=== PATIENT | male | born 1950 | race Caucasian/White ===

== ENCOUNTER 2022-01-24 10:59 | Emergency (ER) | payer MEDICARE, OTHER ==
[~2022-01-24 10:59] MED LIST: ZOFRAN4 MG PO
[2022-01-24 12:36] LABS: BASOPHIL 0.6 % (0-2); EOSINOPHIL 3.3 % (0-7); HCT 46.5 % (42.0-52.0); LYMPHOCYTE 16.2 % (15-48); MCH 32.9 pg (25.0-31.0); MCHC 34.4 g/dL (32.0-36.0); MCV 95.5 fL (78.0-100.0); MONOCYTE 8.6 % (0-12); MPV 9.5 fL (6.0-9.5); NEUTROPHIL 70.9 % (41-80); NRBC 0; PLT 233 K/uL (150-400); RBC 4.87 M/uL (4.70-6.00); RDW 13.7 % (11.5-14.0); WBC 8.1 K/uL (4.0-10.5)
[2022-01-24 12:52] LABS: INR 0.98 (0.9-1.2); PROTHROMBIN TIME 12.4 SECONDS (11.8-13.4)
[2022-01-24 12:54] LABS: D-DIMER 2.16 ug/mLFEU (0.00-0.41)
[2022-01-24 13:05] LABS: ALBUMIN 3.3 g/dL (3.4-5.0); BILIRUBIN - TOTAL 0.8 mg/dL (0.2-1.0); BUN/CREAT RATIO (CALC) 18.6 RATIO; CREATININE 0.86 mg/dL (0.67-1.17); GLOBULIN (CALCULATION) 4.6 g/dL; POTASSIUM 3.7 mmol/L (3.5-5.1); TOTAL PROTEIN 7.9 g/dL (6.4-8.2)
[2022-01-24 13:06] LABS: BILIRUBIN NEGATIVE (NEGATIVE); BLOOD NEGATIVE Ery/uL (NEGATIVE); CLARITY CLEAR (CLEAR); COLOR YELLOW (YELLOW); GLUCOSE (U) NORMAL (NORMAL); LEUKOCYTES NEGATIVE Leu/uL (NEGATIVE); NITRITE NEGATIVE (NEGATIVE); PROTEIN TRACE (LOW) mg/dL (NEGATIVE); SPECIFIC GRAVITY 1.015 (1.001-1.030); pH 7.5 (5.0-9.0)
[2022-01-24 13:12] LABS: SPERM PRESENT; SQUAMOUS EPITHELIAL CELLS RARE; URINARY WBC RARE
== END 2022-01-24 14:02 | disposition home or self-care (01) ==
LOC: FER 10:59
PROVIDERS: Emergency Medicine
DX: I95.1 Orthostatic hypotension (principal); I10 Essential (primary) hypertension; Z88.0 Allergy status to penicillin; Z20.822 Contact with and (suspected) exposure to COVID-19
CPT/HCPCS: 36415; 70450; 71045; 72128; 80053; 81001; 83735; 84145; 84443; 84484; 85025; 85379; 85610; 85730; 93005; J1170; U0002